=== PATIENT | male | born 1960 | race Caucasian/White ===

== ENCOUNTER 2016-08-16 09:24 | Outpatient (RCR) | payer OTHER ==
[~2016-08-16 09:24] MED LIST: ASPIRIN E.C. 8181 MG PO; CIPRO 500MG TA500 MG PO; COUMADIN 1010 MG/TAB PO; COUMADIN 5MG5 MG/TAB PO; DEXILANT60 MG PO; DIOVAN 80MG80 MG PO; DOXYCYCLINE 10100 MG PO; FLAGYL500 MG PO; KLONOPIN 0.5MG0.5 MG PO; KRILL OIL 3001 EACH PO; MULTIPLE VITAMI1 CAP PO; NEXIUM 40MG40 MG PO; NEXIUM40 MG PO; NIASPAN1000 MG PO; PREDNISONE20 MG PO; PROAIR HFA0.09 MG/AC IH; RITE AID KRILL500 MG PO; SINGULAIR 110 MG/TAB PO; SINGULAIR10 MG PO; TAMBOCOR 1100 MG/TAB PO; TOPROL XL 50MG50 MG PO; ZITHROMAX 250M250 MG PO; ZOCOR 40MG40 MG PO; ZOFRAN8 MG PO
[2016-09-25] MEDS ORDERED: OMNICEF 300MG300 MG PO (19:42)
[2016-09-25] MEDS ORDERED: DOXYCYCLINE 10100 MG PO (21:27)
[2016-09-25] MEDS ORDERED: PREDNISONE20 MG PO (21:27)
[2017-05-12] MEDS ORDERED: KLONOPIN 0.5MG0.5 MG PO (15:51)
== END 2016-11-14 ==
LOC: WSOH
DX: S80.02XA Contusion of left knee, initial encounter (principal); W00.0XXA Fall on same level due to ice and snow, initial encounter; Y92.219 Unspecified school as the place of occurrence of the external cause

== ENCOUNTER 2016-09-25 19:16 | Emergency (ER) | payer OTHER, BC ==
[~2016-09-25] VITALS: Ht 177.8 cm; Wt 106.8 kg
[2016-09-25 19:21] VITALS: TEMP 97.7
[2016-09-25] MEDS ORDERED: OMNICEF 300MG300 MG PO (19:42)
[2016-09-25 20:24] LABS: BASO % 0.6 % (0.0-2.0); EOS # 0.2 (0.0-0.7); GRAN # 2.1 (1.4-6.5); GRAN % 44.3 % (42.2-75.2); HEMATOCRIT 43.7 % (42.0-52.0); HEMOGLOBIN 15.4 g/dl (13.5-18.0); LYMPH # 1.9 (1.2-3.4); LYMPH % 39.2 % (20.0-51.0); MEAN CELL VOLUME 88 fl (80.0-100.0); MEAN CORPUSCULAR HEMOGLOBIN 31 pg (27.0-31.0); MEAN CORPUSCULAR HGB CONC 35 g/dl (33.0-37.0); MEAN PLATELET VOLUME 9.6 fl (7.4-10.4); MONO # 0.6 (0.1-0.6); MONO % 11.7 % (1.7-9.3); PLATELET COUNT 230 K/mm3 (130-400); RED BLOOD COUNT 4.97 M/mm3 (4.20-5.60); REDCELL DISTRIBUTION WIDTH-CV 12.7 % (11.5-14.5); WHITE BLOOD COUNT 4.8 K/mm3 (4.8-10.8)
[2016-09-25 20:32] LABS: INFLUENZA B NEGATIVE
[2016-09-25 20:34] LABS: ADJUSTED CALCIUM 8.3 mg/dL (8.4-10.2); ALANINE AMINOTRANSFERASE 54 U/L (21-72); ALBUMIN 4.2 gm/dL (3.5-5.0); ALKALINE PHOSPHATASE 51 U/L (50-136); ANION GAP 12 mmol/L (7-16); BILIRUBIN,TOTAL 0.7 mg/dL (0.0-1.0); BLOOD UREA NITROGEN 13 mg/dL (9-20); CALCIUM 8.5 mg/dL (8.4-10.2); CARBON DIOXIDE 24 mmol/L (22-30); CHLORIDE 99 mmol/L (98-107); CREATININE, serum 0.78 mg/dL (0.66-1.25); GLUCOSE 154 mg/dL (74-106); LIPASE 68 U/L (23-300); POTASSIUM 3.8 mmol/L (3.4-5.0); SODIUM 136 mmol/L (137-145); TOTAL PROTEIN 7.1 gm/dL (6.4-8.2)
[2016-09-25 20:46] LABS: B-TYPE NATRIURETIC PEPTIDE 25 pg/mL (0-125); TROPONIN-I < 0.012 ng/mL (0.000-0.034)
[2016-09-25] MEDS ORDERED: DOXYCYCLINE 10100 MG PO (21:27)
[2016-09-25] MEDS ORDERED: PREDNISONE20 MG PO (21:27)
[2016-09-25 22:05] VITALS: BP 131/88; PULSE 81
[2017-05-12] MEDS ORDERED: KLONOPIN 0.5MG0.5 MG PO (15:51)
== END 2016-09-25 22:07 | disposition home or self-care (01) ==
LOC: COL.ER 19:16
PROVIDERS: Emergency Medicine
DX: J18.9 Pneumonia, unspecified organism (principal); E11.9 Type 2 diabetes mellitus without complications; I10 Essential (primary) hypertension
CPT/HCPCS: J2930; J7030

== ENCOUNTER 2017-09-12 08:34 | Emergency (ER) | payer BC ==
[~2017-09-12] VITALS: Ht 177.8 cm; Wt 109.1 kg
[~2017-09-12 08:34] MED LIST changes: +OMNICEF 300MG300 MG PO
[2017-09-12 08:38] VITALS: TEMP 98
[2017-09-12] MEDS ORDERED: TAMIFLU 75MG75 MG PO (08:48)
[2017-09-12] MEDS ORDERED: MOBIC15 MG PO (08:48)
[2017-09-12 08:58] LABS: BASO % 0.4 % (0.0-2.0); EOS # 0.3 (0.0-0.7); EOS % 6.2 % (0-4.0); GRAN % 41.5 % (42.2-75.2); HEMOGLOBIN 15.4 g/dl (13.5-18.0); LYMPH % 42.3 % (20.0-51.0); MEAN CELL VOLUME 88 fl (80.0-100.0); MEAN CORPUSCULAR HEMOGLOBIN 31 pg (27.0-31.0); MEAN CORPUSCULAR HGB CONC 35 g/dl (33.0-37.0); MEAN PLATELET VOLUME 9.7 fl (7.4-10.4); MONO # 0.5 (0.1-0.6); MONO % 9.6 % (1.7-9.3); PLATELET COUNT 205 K/mm3 (130-400); REDCELL DISTRIBUTION WIDTH-CV 13.2 % (11.5-14.5)
[2017-09-12 09:18] LABS: PROTHROMBIN TIME 11.5 SECONDS (9.7-12.8)
[2017-09-12 09:21] LABS: PARTIAL THROMBOPLASTIN TIME 31.9 SECONDS (26.0-37.0)
[2017-09-12 09:23] LABS: ALANINE AMINOTRANSFERASE 56 U/L (21-72); ALBUMIN 4.4 gm/dL (3.5-5.0); ALKALINE PHOSPHATASE 53 U/L (50-136); ANION GAP 12 mmol/L (7-16); AST,SGOT 50 U/L (15-37); BILIRUBIN,TOTAL 0.4 mg/dL (0.0-1.0); BLOOD UREA NITROGEN 11 mg/dL (9-20); CALCIUM 8.7 mg/dL (8.4-10.2); CARBON DIOXIDE 27 mmol/L (22-30); CHLORIDE 101 mmol/L (98-107); CREATININE, serum 0.73 mg/dL (0.66-1.25); GLUCOSE 139 mg/dL (74-106); POTASSIUM 3.9 mmol/L (3.4-5.0); SODIUM 139 mmol/L (137-145)
[2017-09-12 09:39] LABS: TROPONIN-I < 0.012 ng/mL (0.000-0.034)
[2017-09-12 10:15] VITALS: BP 125/83; PULSE 70
== END 2017-09-12 10:16 | disposition home or self-care (01) ==
LOC: COL.ER 08:34
PROVIDERS: Family Medicine
DX: J11.1 Influenza due to unidentified influenza virus with other respiratory manifestations (principal); R20.2 Paresthesia of skin; I48.91 Unspecified atrial fibrillation; K21.9 Gastro-esophageal reflux disease without esophagitis; F41.9 Anxiety disorder, unspecified; Z79.82 Long term (current) use of aspirin

== ENCOUNTER 2017-09-13 02:27 | Emergency (ER) | payer BC ==
[~2017-09-13] VITALS: Ht 177.8 cm; Wt 109.1 kg
[~2017-09-13 02:27] MED LIST changes: +MOBIC15 MG PO; +TAMIFLU 75MG75 MG PO
[2017-09-13 02:29] VITALS: TEMP 98.1
[2017-09-13 03:15] LABS: BASO % 0.4 % (0.0-2.0); EOS # 0.2 (0.0-0.7); EOS % 3.5 % (0-4.0); HEMATOCRIT 43.5 % (42.0-52.0); HEMOGLOBIN 15.3 g/dl (13.5-18.0); LYMPH # 1.7 (1.2-3.4); LYMPH % 31.7 % (20.0-51.0); MEAN CELL VOLUME 88 fl (80.0-100.0); MEAN CORPUSCULAR HEMOGLOBIN 31 pg (27.0-31.0); MEAN CORPUSCULAR HGB CONC 35 g/dl (33.0-37.0); MEAN PLATELET VOLUME 9.5 fl (7.4-10.4); MONO # 0.5 (0.1-0.6); MONO % 9.2 % (1.7-9.3); PLATELET COUNT 201 K/mm3 (130-400); RED BLOOD COUNT 4.96 M/mm3 (4.20-5.60); REDCELL DISTRIBUTION WIDTH-CV 13.1 % (11.5-14.5)
[2017-09-13 03:28] LABS: ALANINE AMINOTRANSFERASE 50 U/L (21-72); ALBUMIN 4.5 gm/dL (3.5-5.0); ALKALINE PHOSPHATASE 47 U/L (50-136); ANION GAP 10 mmol/L (7-16); AST,SGOT 32 U/L (15-37); BILIRUBIN,TOTAL 0.5 mg/dL (0.0-1.0); BLOOD UREA NITROGEN 11 mg/dL (9-20); CALCIUM 8.8 mg/dL (8.4-10.2); CARBON DIOXIDE 26 mmol/L (22-30); CHLORIDE 102 mmol/L (98-107); CREATININE, serum 0.74 mg/dL (0.66-1.25); GLUCOSE 140 mg/dL (74-106); MAGNESIUM 2.1 mg/dL (1.6-2.3); POTASSIUM 3.7 mmol/L (3.4-5.0); SODIUM 137 mmol/L (137-145); TOTAL PROTEIN 7.1 gm/dL (6.4-8.2)
[2017-09-13 03:40] LABS: TROPONIN-I < 0.012 ng/mL (0.000-0.034)
[2017-09-13 04:49] VITALS: BP 144/96; PULSE 70
== END 2017-09-13 04:50 | disposition home or self-care (01) ==
LOC: COL.ER 02:27
PROVIDERS: Emergency Medicine
DX: R00.2 Palpitations (principal); I10 Essential (primary) hypertension; E78.5 Hyperlipidemia, unspecified; I48.91 Unspecified atrial fibrillation; K21.9 Gastro-esophageal reflux disease without esophagitis; Z79.82 Long term (current) use of aspirin
CPT/HCPCS: J7030

== ENCOUNTER 2017-09-18 18:22 | Observation (INO) | payer BC ==
[~2017-09-18] VITALS: Ht 175.3 cm; Wt 108.1 kg
[2017-09-18 18:43] LABS: BASO # 0.1 (0.0-0.2); BASO % 0.7 % (0.0-2.0); EOS # 0.2 (0.0-0.7); EOS % 2.5 % (0-4.0); GRAN # 3.6 (1.4-6.5); GRAN % 50.6 % (42.2-75.2); HEMATOCRIT 42.5 % (42.0-52.0); LYMPH # 2.7 (1.2-3.4); MEAN CELL VOLUME 88 fl (80.0-100.0); MEAN CORPUSCULAR HEMOGLOBIN 31 pg (27.0-31.0); MEAN CORPUSCULAR HGB CONC 35 g/dl (33.0-37.0); MEAN PLATELET VOLUME 9.6 fl (7.4-10.4); MONO # 0.6 (0.1-0.6); MONO % 8.6 % (1.7-9.3); PLATELET COUNT 310 K/mm3 (130-400); RED BLOOD COUNT 4.85 M/mm3 (4.20-5.60); REDCELL DISTRIBUTION WIDTH-CV 13.1 % (11.5-14.5)
[2017-09-18 18:47] LABS: PROTHROMBIN TIME 12.1 SECONDS (9.7-12.8)
[2017-09-18 18:50] LABS: PARTIAL THROMBOPLASTIN TIME 28.9 SECONDS (26.0-37.0)
[2017-09-18 18:55] LABS: ALANINE AMINOTRANSFERASE 53 U/L (21-72); ALBUMIN 4.5 gm/dL (3.5-5.0); ALKALINE PHOSPHATASE 50 U/L (50-136); ANION GAP 11 mmol/L (7-16); AST,SGOT 31 U/L (15-37); BILIRUBIN,TOTAL 0.4 mg/dL (0.0-1.0); BLOOD UREA NITROGEN 22 mg/dL (9-20); CALCIUM 9.1 mg/dL (8.4-10.2); CARBON DIOXIDE 25 mmol/L (22-30); CHLORIDE 102 mmol/L (98-107); CREATININE, serum 0.76 mg/dL (0.66-1.25); GLUCOSE 202 mg/dL (74-106); POTASSIUM 4.1 mmol/L (3.4-5.0); SODIUM 138 mmol/L (137-145); TOTAL PROTEIN 7.1 gm/dL (6.4-8.2)
[2017-09-18 19:00] LABS: C-REACTIVE PROTEIN < 0.5 mg/dL (0.0-0.9)
[2017-09-18 19:06] LABS: TROPONIN-I < 0.012 ng/mL (0.000-0.034)
[2017-09-18 21:32] VITALS: BP 147/84; PULSE 71; TEMP 98.6
[2017-09-19] VITALS (17 sets, daily range): BP systolic 104–141; BP diastolic 57–88; PULSE 62–80; TEMP 97.9–98.6
[2017-09-19 06:46] LABS: BASO # 0.1 (0.0-0.2); BASO % 0.7 % (0.0-2.0); EOS # 0.2 (0.0-0.7); EOS % 2.6 % (0-4.0); GRAN # 3.6 (1.4-6.5); GRAN % 50.3 % (42.2-75.2); HEMATOCRIT 40.8 % (42.0-52.0); HEMOGLOBIN 14.1 g/dl (13.5-18.0); LYMPH # 2.7 (1.2-3.4); LYMPH % 38.3 % (20.0-51.0); MEAN CELL VOLUME 88 fl (80.0-100.0); MEAN CORPUSCULAR HEMOGLOBIN 30 pg (27.0-31.0); MEAN CORPUSCULAR HGB CONC 35 g/dl (33.0-37.0); MEAN PLATELET VOLUME 9.7 fl (7.4-10.4); MONO # 0.5 (0.1-0.6); MONO % 7.7 % (1.7-9.3); PLATELET COUNT 273 K/mm3 (130-400); RED BLOOD COUNT 4.65 M/mm3 (4.20-5.60); REDCELL DISTRIBUTION WIDTH-CV 13.3 % (11.5-14.5)
[2017-09-19 06:58] LABS: ANION GAP 8 mmol/L (7-16); BLOOD UREA NITROGEN 18 mg/dL (9-20); CALCIUM 8.6 mg/dL (8.4-10.2); CARBON DIOXIDE 27 mmol/L (22-30); CHLORIDE 105 mmol/L (98-107); CHOLESTEROL 144 mg/dL (120-200); CHOLESTEROL RISK RATIO 5.3; CREATININE, serum 0.69 mg/dL (0.66-1.25); GLUCOSE 105 mg/dL (74-106); HDL CHOLESTEROL 27 mg/dL; LDL CHOLESTEROL 70 mg/dL; POTASSIUM 3.8 mmol/L (3.4-5.0); SODIUM 140 mmol/L (137-145); TRIGLYCERIDE 237 mg/dL
[2017-09-19 07:22] LABS: TROPONIN-I < 0.012 ng/mL (0.000-0.034)
[2017-09-19 12:38] LABS: INR 1.1 (0.8-3.0); PROTHROMBIN TIME 12.7 SECONDS (9.7-12.8)
[2017-09-19 12:41] LABS: PARTIAL THROMBOPLASTIN TIME 31.8 SECONDS (26.0-37.0)
[2017-09-20] MEDS ORDERED: TAMBOCOR150 MG PO (08:11)
[2017-09-20 08:25] VITALS: BP 122/86; PULSE 63; TEMP 97.7
[2017-09-20] MEDS ORDERED: XANAX 0.5MG0.5 MG PO (09:08)
[2017-09-20 11:50] VITALS: BP 136/82; PULSE 93
[2017-09-20 12:07] VITALS: BP 113/56; PULSE 68; TEMP 98.6
== END 2017-09-20 12:51 | disposition home or self-care (01) ==
LOC: COL.ER 18:22 → MEDICAL 20:20
PROVIDERS: Emergency Medicine; Nurse Practitioner
DX: I25.10 Atherosclerotic heart disease of native coronary artery without angina pectoris (principal); R94.39 Abnormal result of other cardiovascular function study; I48.91 Unspecified atrial fibrillation; E11.9 Type 2 diabetes mellitus without complications; G47.33 Obstructive sleep apnea (adult) (pediatric); E78.5 Hyperlipidemia, unspecified; I10 Essential (primary) hypertension; K21.9 Gastro-esophageal reflux disease without esophagitis; G25.81 Restless legs syndrome; Z82.49 Family history of ischemic heart disease and other diseases of the circulatory system
CPT/HCPCS: C1769; G0378; J1644; J2250; J3010; J7030; Q9967

== ENCOUNTER 2017-11-28 20:01 | Emergency (ER) | payer BC ==
[~2017-11-28] VITALS: Ht 177.8 cm; Wt 109.1 kg
[~2017-11-28 20:01] MED LIST changes: +TAMBOCOR150 MG PO; +XANAX 0.5MG0.5 MG PO
[2017-11-28] MEDS ORDERED: CARAFATE 1GM1 G PO (21:11)
[2017-11-28 21:18] VITALS: BP 145/93; PULSE 80; TEMP 98.3
== END 2017-11-28 21:20 | disposition home or self-care (01) ==
LOC: COL.ER 20:01
DX: K20.8 Other esophagitis (principal); I48.91 Unspecified atrial fibrillation; E11.9 Type 2 diabetes mellitus without complications; K21.9 Gastro-esophageal reflux disease without esophagitis; I10 Essential (primary) hypertension; E78.00 Pure hypercholesterolemia, unspecified

== ENCOUNTER 2018-01-22 01:40 | Emergency (ER) | payer BC ==
[~2018-01-22] VITALS: Ht 177.8 cm; Wt 106.8 kg
[~2018-01-22 01:40] MED LIST changes: +CARAFATE 1GM1 G PO
[2018-01-22 01:44] VITALS: BP 124/88; TEMP 97.2
[2018-01-22 04:30] LABS: BASO # 0.1 (0.0-0.2); BASO % 0.8 % (0.0-2.0); EOS # 0.1 (0.0-0.7); EOS % 2.3 % (0-4.0); GRAN # 3.5 (1.4-6.5); GRAN % 56.8 % (42.2-75.2); HEMATOCRIT 41.9 % (42.0-52.0); HEMOGLOBIN 14.5 g/dl (13.5-18.0); LYMPH # 1.8 (1.2-3.4); LYMPH % 29.1 % (20.0-51.0); MEAN CELL VOLUME 88 fl (80.0-100.0); MEAN CORPUSCULAR HEMOGLOBIN 30 pg (27.0-31.0); MEAN CORPUSCULAR HGB CONC 35 g/dl (33.0-37.0); MEAN PLATELET VOLUME 9.7 fl (7.4-10.4); MONO # 0.7 (0.1-0.6); MONO % 10.7 % (1.7-9.3); PLATELET COUNT 222 K/mm3 (130-400); RED BLOOD COUNT 4.79 M/mm3 (4.20-5.60); REDCELL DISTRIBUTION WIDTH-CV 13.2 % (11.5-14.5)
[2018-01-22 04:40] LABS: ALANINE AMINOTRANSFERASE 38 U/L (21-72); ALBUMIN 3.8 gm/dL (3.5-5.0); ALKALINE PHOSPHATASE 37 U/L (50-136); ANION GAP 13 mmol/L (7-16); AST,SGOT 27 U/L (15-37); BILIRUBIN,TOTAL 0.5 mg/dL (0.0-1.0); BLOOD UREA NITROGEN 21 mg/dL (9-20); CALCIUM 8.7 mg/dL (8.4-10.2); CARBON DIOXIDE 25 mmol/L (22-30); CHLORIDE 105 mmol/L (98-107); CREATININE, serum 0.69 mg/dL (0.66-1.25); GLUCOSE 131 mg/dL (74-106); POTASSIUM 4.1 mmol/L (3.4-5.0); SODIUM 143 mmol/L (137-145); TOTAL PROTEIN 6.8 gm/dL (6.4-8.2)
[2018-01-22 04:52] LABS: TROPONIN-I < 0.012 ng/mL (0.000-0.034)
[2018-01-22 05:28] VITALS: PULSE 72
== END 2018-01-22 05:29 | disposition home or self-care (01) ==
LOC: COL.ER 01:40
PROVIDERS: Emergency Medicine
DX: F41.0 Panic disorder [episodic paroxysmal anxiety] (principal); F41.9 Anxiety disorder, unspecified; I48.91 Unspecified atrial fibrillation; I10 Essential (primary) hypertension; E78.5 Hyperlipidemia, unspecified; E11.9 Type 2 diabetes mellitus without complications; Z79.82 Long term (current) use of aspirin

== ENCOUNTER → 2018-03-27 | Outpatient (CLI) | payer BC | LOC: COL.RAD 08:54 | DX: D33.3 Benign neoplasm of cranial nerves (principal) | CPT/HCPCS: A9585 ==

== ENCOUNTER 2018-06-11 06:37 | Emergency (ER) | payer BC ==
[~2018-06-11] VITALS: Ht 177.8 cm; Wt 105.9 kg
[2018-06-11 06:46] VITALS: TEMP 98.3
[2018-06-11] MEDS ORDERED: COZAAR 50MG50 MG/TAB PO (07:01)
[2018-06-11] MEDS ORDERED: PROTONIX 40MG T40 MG PO ×2 (07:01→08:25)
[2018-06-11 07:33] LABS: BASO # 0.1 (0.0-0.2); BASO % 0.9 % (0.0-2.0); EOS # 0.4 (0.0-0.7); EOS % 7.2 % (0-4.0); GRAN # 2.6 (1.4-6.5); GRAN % 47.4 % (42.2-75.2); HEMATOCRIT 42.7 % (42.0-52.0); HEMOGLOBIN 14.7 g/dl (13.5-18.0); LYMPH # 1.8 (1.2-3.4); LYMPH % 33.9 % (20.0-51.0); MEAN CELL VOLUME 88 fl (80.0-100.0); MEAN CORPUSCULAR HEMOGLOBIN 30 pg (27.0-31.0); MEAN CORPUSCULAR HGB CONC 34 g/dl (33.0-37.0); MEAN PLATELET VOLUME 9.7 fl (7.4-10.4); MONO # 0.6 (0.1-0.6); MONO % 10.4 % (1.7-9.3); PLATELET COUNT 236 K/mm3 (130-400); RED BLOOD COUNT 4.83 M/mm3 (4.20-5.60); REDCELL DISTRIBUTION WIDTH-CV 13.6 % (11.5-14.5)
[2018-06-11 07:47] LABS: COLLECTION METHOD CLEAN CATCH
[2018-06-11 07:49] LABS: ALANINE AMINOTRANSFERASE 43 U/L (21-72); ALBUMIN 3.9 gm/dL (3.5-5.0); ALKALINE PHOSPHATASE 37 U/L (50-136); ANION GAP 8 mmol/L (7-16); AST,SGOT 26 U/L (15-37); BILIRUBIN,TOTAL 0.6 mg/dL (0.0-1.0); BLOOD UREA NITROGEN 15 mg/dL (9-20); C-REACTIVE PROTEIN 0.6 mg/dL (0.0-0.9); CALCIUM 8.4 mg/dL (8.4-10.2); CARBON DIOXIDE 28 mmol/L (22-30); CHLORIDE 102 mmol/L (98-107); CREATININE, serum 0.74 mg/dL (0.66-1.25); GLUCOSE 141 mg/dL (74-106); LIPASE 65 U/L (23-300); POTASSIUM 3.8 mmol/L (3.4-5.0); SODIUM 138 mmol/L (137-145); TOTAL PROTEIN 6.6 gm/dL (6.4-8.2)
[2018-06-11 07:54] LABS: MUCOUS Present /lpf; PH 5 (5-8); SQUAMOUS EPITHELIAL None Seen /hpf; URINE APPEARANCE Clear; URINE BACTERIA None Seen /hpf; URINE BILIRUBIN Negative (NEGATIVE); URINE BLOOD Negative (NEGATIVE); URINE COLOR Yellow; URINE GLUCOSE Negative (NEGATIVE); URINE KETONE Negative (NEGATIVE); URINE LEUKOCYTE ESTERASE Negative (NEGATIVE); URINE NITRATE Negative (NEGATIVE); URINE PROTEIN(semi-quant) Negative (NEGATIVE); URINE RBC 0-2 /hpf; URINE UROBILINOGEN Negative (NEGATIVE)
[2018-06-11 07:58] LABS: TROPONIN-I < 0.012 ng/mL (0.000-0.034)
[2018-06-11] MEDS ORDERED: PHENERGAN 25 TA25 MG PO (08:25)
[2018-06-11 09:02] VITALS: BP 132/96; PULSE 80
== END 2018-06-11 09:03 | disposition home or self-care (01) ==
LOC: COL.ER 06:37
PROVIDERS: Emergency Medicine
DX: R10.13 Epigastric pain (principal); E11.9 Type 2 diabetes mellitus without complications; Z90.49 Acquired absence of other specified parts of digestive tract; Z79.82 Long term (current) use of aspirin
CPT/HCPCS: C9113; J2405; J7030; Q9967

== ENCOUNTER → 2019-04-15 | Outpatient (CLI) | payer BC ==
[~2019-04-15] MED LIST changes: +COZAAR 50MG50 MG/TAB PO; +PHENERGAN 25 TA25 MG PO; +PROTONIX 40MG T40 MG PO
== END ==
LOC: COL.RAD 10:08
DX: D33.3 Benign neoplasm of cranial nerves (principal); E87.8 Other disorders of electrolyte and fluid balance, not elsewhere classified; E11.9 Type 2 diabetes mellitus without complications; I10 Essential (primary) hypertension
CPT/HCPCS: A9585

== ENCOUNTER 2019-09-08 20:50 | Emergency (ER) | payer BC ==
[~2019-09-08] VITALS: Ht 177.8 cm; Wt 113.6 kg
[2019-09-08 21:16] VITALS: TEMP 98.2
[2019-09-08 22:32] LABS: BASO # 0.1 (0.0-0.2); EOS # 0.2 (0.0-0.7); EOS % 2.2 % (0-4.0); GRAN # 3.9 (1.4-6.5); HEMATOCRIT 45.1 % (42.0-52.0); HEMOGLOBIN 15.7 g/dl (13.5-18.0); LYMPH # 2.6 (1.2-3.4); LYMPH % 35.2 % (20.0-51.0); MEAN CELL VOLUME 90 fl (80.0-100.0); MEAN CORPUSCULAR HEMOGLOBIN 31 pg (27.0-31.0); MEAN CORPUSCULAR HGB CONC 35 g/dl (33.0-37.0); MEAN PLATELET VOLUME 9.5 fl (7.4-10.4); MONO # 0.6 (0.1-0.6); MONO % 8.3 % (1.7-9.3); PLATELET COUNT 270 K/mm3 (130-400); RED BLOOD COUNT 5.03 M/mm3 (4.20-5.60); REDCELL DISTRIBUTION WIDTH-CV 12.6 % (11.5-14.5)
[2019-09-08 22:39] LABS: PROTHROMBIN TIME 11.7 SECONDS (9.7-12.8)
[2019-09-08 22:42] LABS: PARTIAL THROMBOPLASTIN TIME 31.5 SECONDS (26.0-37.0)
[2019-09-08 22:44] LABS: D-DIMER < 200.00 ng/mLDDu (200-230)
[2019-09-08 22:45] LABS: ALANINE AMINOTRANSFERASE 53 U/L (21-72); ALBUMIN 4.6 gm/dL (3.5-5.0); ALKALINE PHOSPHATASE 39 U/L (50-136); ANION GAP 9 mmol/L (7-16); AST,SGOT 35 U/L (15-37); BILIRUBIN,TOTAL 0.3 mg/dL (0.0-1.0); BLOOD UREA NITROGEN 17 mg/dL (9-20); C-REACTIVE PROTEIN < 0.5 mg/dL (0.0-0.9); CALCIUM 9.1 mg/dL (8.4-10.2); CARBON DIOXIDE 28 mmol/L (22-30); CHLORIDE 100 mmol/L (98-107); CREATININE, serum 1.21 (0.66-1.25); GLUCOSE 149 mg/dL (74-106); LIPASE 60 U/L (23-300); POTASSIUM 4.3 mmol/L (3.4-5.0); SODIUM 138 mmol/L (137-145); TOTAL PROTEIN 7.4 gm/dL (6.4-8.2)
[2019-09-08 22:54] LABS: TROPONIN-I < 0.012 ng/mL (0.000-0.035)
[2019-09-08] MEDS ORDERED: FLEXERIL 1010 MG/TAB PO (23:29)
[2019-09-08 23:41] VITALS: BP 120/88; PULSE 62
== END 2019-09-08 23:41 | disposition home or self-care (01) ==
LOC: COL.ER 20:50
PROVIDERS: Emergency Medicine
DX: R07.89 Other chest pain (principal); I10 Essential (primary) hypertension; E78.5 Hyperlipidemia, unspecified; I48.91 Unspecified atrial fibrillation; E11.9 Type 2 diabetes mellitus without complications; Z90.89 Acquired absence of other organs; Z95.9 Presence of cardiac and vascular implant and graft, unspecified; Z79.82 Long term (current) use of aspirin

== ENCOUNTER → 2019-10-25 | Outpatient (CLI) | payer BC ==
[~2019-10-25] MED LIST changes: +FLEXERIL 1010 MG/TAB PO
== END ==
LOC: ZCOL.LAB 14:53 → ZLAB.ENT 14:53
DX: H60.502 Unspecified acute noninfective otitis externa, left ear (principal)

== ENCOUNTER 2020-04-03 08:43 | Emergency (ER) | payer BC ==
[~2020-04-03] VITALS: Ht 177.8 cm; Wt 107.7 kg
[2020-04-03 08:53] VITALS: TEMP 98.8
[2020-04-03 09:22] LABS: BASO # 0.1 (0.0-0.2); BASO % 0.9 % (0.0-2.0); EOS # 0.2 (0.0-0.7); EOS % 3.2 % (0-4.0); GRAN # 3.3 (1.4-6.5); GRAN % 49.1 % (42.2-75.2); HEMATOCRIT 44.5 % (42.0-52.0); LYMPH # 2.6 (1.2-3.4); LYMPH % 37.8 % (20.0-51.0); MEAN CELL VOLUME 89 fl (80.0-100.0); MEAN CORPUSCULAR HEMOGLOBIN 30 pg (27.0-31.0); MEAN CORPUSCULAR HGB CONC 34 g/dl (33.0-37.0); MEAN PLATELET VOLUME 9.9 fl (7.4-10.4); MONO # 0.6 (0.1-0.6); MONO % 8.9 % (1.7-9.3); PLATELET COUNT 256 K/mm3 (130-400); RED BLOOD COUNT 5.03 M/mm3 (4.20-5.60); REDCELL DISTRIBUTION WIDTH-CV 12.7 % (11.5-14.5)
[2020-04-03 09:38] LABS: ALANINE AMINOTRANSFERASE 33 U/L (4-49); ALBUMIN 4.1 gm/dL (3.5-5.0); ALKALINE PHOSPHATASE 39 U/L (50-136); ANION GAP 11 mmol/L (7-16); AST,SGOT 40 U/L (15-37); BILIRUBIN,TOTAL 0.5 mg/dL (0.0-1.0); BLOOD UREA NITROGEN 14 mg/dL (9-20); CALCIUM 8.6 mg/dL (8.4-10.2); CARBON DIOXIDE 26 mmol/L (22-30); CHLORIDE 103 mmol/L (98-107); CREATININE, serum 0.73 (0.66-1.25); GLUCOSE 145 mg/dL (74-106); POTASSIUM 3.7 mmol/L (3.4-5.0); SODIUM 140 mmol/L (137-145)
[2020-04-03 09:56] LABS: TROPONIN-I < 0.012 ng/mL (0.000-0.035)
[2020-04-03] MEDS ORDERED: ANTIVERT 25MG25 MG PO (10:11)
[2020-04-03] MEDS ORDERED: ZOFRAN ODT4 MG PO (10:11)
[2020-04-03 11:00] VITALS: BP 122/81; PULSE 59
== END 2020-04-03 11:10 | disposition home or self-care (01) ==
LOC: COL.ER 08:43
PROVIDERS: Emergency Medicine
DX: R42 Dizziness and giddiness (principal); R07.89 Other chest pain; F41.9 Anxiety disorder, unspecified; E11.9 Type 2 diabetes mellitus without complications; I48.91 Unspecified atrial fibrillation; Z90.49 Acquired absence of other specified parts of digestive tract; Z79.82 Long term (current) use of aspirin
CPT/HCPCS: J2060; J2405

== ENCOUNTER → 2020-04-13 | Outpatient (CLI) | payer BC ==
[~2020-04-13] MED LIST changes: +ANTIVERT 25MG25 MG PO; +ZOFRAN ODT4 MG PO
== END ==
LOC: COL.RAD 09:21
DX: Z01.812 Encounter for preprocedural laboratory examination (principal); D33.3 Benign neoplasm of cranial nerves
CPT/HCPCS: A9585

== ENCOUNTER 2021-04-02 06:39 | Day surgery (SDC) | payer BC ==
[~2021-04-02] VITALS: Ht 177.8 cm; Wt 108.3 kg
[~2021-04-02 06:39] MED LIST changes: +KRILL OIL 1,001 EAC1 PO; -KRILL OIL 3001 EACH PO
[2021-04-02 07:21] VITALS: BP 124/87; PULSE 69; TEMP 98
[2021-04-02] MEDS ORDERED: SINGULAIR 110 MG/TAB PO (07:25)
[2021-04-02 08:50] VITALS: BP 116/86; PULSE 62; TEMP 97.5
--- NOTE | 2021-04-02 08:50 | NUR ---
Patient arrives to [facility] via cart, accompanied by Jolly RN. He is alert and oriented. He ambulates with steady gait to the chair in his room. Monitoring is applied - VSS and WNL on room air. He denies pain, nausea, or other complaint. PIV to TKO. He is offered and receives pepsi and toast. His is at the bedside.
[2021-04-02 09:00] VITALS: BP 138/85; PULSE 59
[2021-04-02 09:15] VITALS: BP 130/76; PULSE 60
--- NOTE | 2021-04-02 09:15 | NUR ---
VSS and WNL on room air. Denies pain or nausea. Tolerated PO well.
--- NOTE | 2021-04-02 09:20 | NUR ---
Dr. Mitchell comes and speaks with the patient and his . The patient has met discharge criteria. Discharge instructions are discussed. He denies any questions and verbalizes understanding. PIV is removed with catheter intact and hemostasis achieved. He changes to his clothing independently.
--- NOTE | 2021-04-02 09:24 | NUR ---
Patient is escorted to the exit via wheelchair by SHANIQUE Varghese. He is discharged to home to the care of his , who drives him home in private vehicle, at 0924.
== END 2021-04-02 09:24 | disposition home or self-care (01) ==
LOC: SDCO 06:39
DX: Z12.11 Encounter for screening for malignant neoplasm of colon (principal); K57.30 Diverticulosis of large intestine without perforation or abscess without bleeding; K21.9 Gastro-esophageal reflux disease without esophagitis; K76.0 Fatty (change of) liver, not elsewhere classified; E78.5 Hyperlipidemia, unspecified; J45.909 Unspecified asthma, uncomplicated; G47.33 Obstructive sleep apnea (adult) (pediatric); E11.9 Type 2 diabetes mellitus without complications; I48.91 Unspecified atrial fibrillation; I10 Essential (primary) hypertension; I20.8 Other forms of angina pectoris; G89.29 Other chronic pain; M54.5 Low back pain; Z86.010 Personal history of colon polyps; Z20.822 Contact with and (suspected) exposure to COVID-19; Z99.89 Dependence on other enabling machines and devices; Z90.49 Acquired absence of other specified parts of digestive tract; Z79.82 Long term (current) use of aspirin
CPT/HCPCS: J2704; J7030

== ENCOUNTER → 2022-05-11 | Outpatient (CLI) | payer BC | LOC: COL.RAD 08:02 | DX: D33.3 Benign neoplasm of cranial nerves (principal) | CPT/HCPCS: A9575 ==

== ENCOUNTER → 2024-04-11 | Outpatient (CLI) | payer MEDICARE, OTHER ==
[~2024-04-11] MED LIST changes: +Gadoterate 20 ML VIAL IV ONE
== END ==
LOC: COL.RAD 08:31
DX: D33.3 Benign neoplasm of cranial nerves (principal)
CPT/HCPCS: A9575